=== PATIENT | female | born 1980 | race Caucasian/White ===

== ENCOUNTER 2021-11-05 18:31 | Emergency (ER) | payer MEDICAID ==
[~2021-11-05] VITALS: Ht 175.3 cm; Wt 95.0 kg
[~2021-11-05 18:31] MED LIST: BENZ1TAB7 PO; CLON-527 PO; CLOZ100T13; CLOZ100T13 PO; COL100C PO; LAMO25TA4 PO; MAGN296S68 PO; MILK OF MAG PO; MULT-1085 PO; POLY17PO10 PO; PROP10TA10 PO; [UNRECOGNIZED DRUG - CODE]
[2021-11-05 19:46] VITALS: BP 123/67
== END 2021-11-06 00:19 | disposition home or self-care (01) ==
LOC: ER 18:31
DX: Z03.821 Encounter for observation for suspected ingested foreign body ruled out (principal); R09.89 Other specified symptoms and signs involving the circulatory and respiratory systems; R11.10 Vomiting, unspecified; R59.0 Localized enlarged lymph nodes; F20.9 Schizophrenia, unspecified; Z88.0 Allergy status to penicillin; Z88.6 Allergy status to analgesic agent; Z79.899 Other long term (current) drug therapy
CPT/HCPCS: 70490; 99284